=== PATIENT | female | born 1995 | race Caucasian/White ===

== ENCOUNTER 2016-11-01 13:13 | Emergency (ER) | payer OTHER ==
[~2016-11-01] VITALS: Ht 160 cm; Wt 87.7 kg
[~2016-11-01 13:13] MED LIST: AUGMENTIN 500 M1 TAB; CEFDINIR300 MG PO; CELEXA40 MG PO; CLINDAMYCIN300 MG PO; KEFLEX500 M1 PO; KEPPRA750 MG PO; MOTRIN800 MG PO; NAPROSYN375 M1 PO; PRENATAL VITAMI1 TA6 PO; SEROQUEL100 MG PO; TYLENOL XSTR500 MG GT/PO; VICODIN 5/500 M1 TAB; WELLBUTRIN100 MG PO
[2016-11-01 13:31] VITALS: BP 123/68
--- NOTE | 2016-11-01 19:32 | NUR ---
TO ER BED 4
[2016-11-01] MEDS ORDERED: NACL 0.9% 1,000 ML IV ONE (19:46)
[2016-11-01] MEDS ORDERED: DICYCLOMINE HCL LIQUID 20 MG, ALUMINUM HYD/MAG/SIMETHICONE 30 ML, LIDOCAINE VISCOUS 2% ... PO ONE (19:50)
[2016-11-01] MEDS ORDERED: MORPHINE SULFATE 4 MG/ML SYR IVP ONE (19:50)
[2016-11-01] MEDS ORDERED: ONDANSETRON 4 MG/2 ML VIAL IVP ONE (19:50)
--- NOTE | 2016-11-01 20:11 | NUR ---
PATIENT PRESENTS TO ED WITH EPIGASTRIC PAIN X1WEEK . PT STATES SHE HAS A HX OF SEIXURES WITH THE LAST ONE BEING IN 2014 . DENIES N/V/D; SKIN IS PINK/WARM/DRY; AAOX4 WITH EVEN AND STEADY GAIT; LUNGS CLEAR BL; HR EVEN AND REGULAR; PT DENIES ANY FEVER, CP, SOB, OR COUGH AT THIS TIME; PATIENT STATES PAIN OF 10/10 AT THIS TIME; VSS; PATIENT POSITIONED FOR COMFORT; HOB ELEVATED; BEDRAILS UP X2; BED DOWN. ER MD MADE AWARE OF PT STATUS.
--- NOTE | 2016-11-01 21:30 | NUR ---
Patient discharged with v/s stable. Written and verbal after care instructions given and explained. Patient alert, oriented and verbalized understanding of instructions. Ambulatory with steady gait. All questions addressed prior to discharge. ID band removed. Patient advised to follow up with PMD. Rx of MYLANTA AND TYLENOL WITH CODEINE given. Patient educated on indication of medication including possible reaction and side effects. Opportunity to ask questions provided and answered.
[2016-11-01 21:31] VITALS: BP 135/80
== END 2016-11-01 21:30 | disposition home or self-care (01) ==
LOC: MED 13:13
DX: R10.10 Upper abdominal pain, unspecified (principal); R11.0 Nausea; F17.200 Nicotine dependence, unspecified, uncomplicated
CPT/HCPCS: 36415; 76705; 80053; 81025; 83690; 85025; 96361; 96374; 96375; 99285; J2270; J2405; J7030; Q0092

== ENCOUNTER 2018-04-25 19:57 | Inpatient (IN) | payer OTHER ==
[~2018-04-25] VITALS: Ht 160 cm; Wt 96.2 kg
[~2018-04-25 19:57] MED LIST changes: -AUGMENTIN 500 M1 TAB; +BUPR100T3 PO; -CEFDINIR300 MG PO; -CELEXA40 MG PO; +CITA40TA13 PO; -CLINDAMYCIN300 MG PO; +IBUP-974 PO; -KEFLEX500 M1 PO; -KEPPRA750 MG PO; -MOTRIN800 MG PO; -NAPROSYN375 M1 PO; -PRENATAL VITAMI1 TA6 PO; +QUET100T PO; -SEROQUEL100 MG PO; -TYLENOL XSTR500 MG GT/PO; -VICODIN 5/500 M1 TAB; -WELLBUTRIN100 MG PO
[2018-04-25 20:00] VITALS: BP 127/67
--- NOTE | 2018-04-25 20:00 | NUR ---
TO BED # 3 AMBULATORY, REPORT GIVEN TO TAJ PATTERSON
--- NOTE | 2018-04-25 20:08 | NUR ---
22 Y/O F BIB BOYFRIEND W/C/O "MY SITE IS INFECTED." PT HAS 3 YEARS AGO. PT HAS RED ARE TO SITE WITH OPEN AREA 1CM X 1.5CM TO UMBILICAL REGION. PT REPORTS IT APPEARED 3 DAYS AGO. PT DENIES N/V/D; SKIN IS NON-INTACT, PINK/WARM/DRY; AAOX4, PERRL, WITH EVEN AND STEADY GAIT; LUNGS CLEAR BL, BREATHING UNLABORED; HR EVEN AND REGULAR, BL PERIPHERAL PULSES PRESENT; BS ACTIVE X4, NO TENDERNESS TO PALPATION, NO HEPATOSPLENOMEGALLY PALPATED, RESONANT TO PERCUSSION; PT DENIES ANY FEVER, CP, SOB, OR COUGH AT THIS TIME; PT STATES 10/10 PAIN AT THIS TIME; VSS; PATIENT POSITIONED FOR COMFORT; HOB ELEVATED; BEDRAILS UP X2; BED DOWN.
--- NOTE | 2018-04-25 20:32 | NUR ---
Dr. Reaves evaluating patient at bedside.
[2018-04-25] MEDS ORDERED: MORPHINE SULFATE 4 MG/ML SYR IVP ONE (20:35)
[2018-04-25] MEDS ORDERED: cefTRIAXone 1,000 MG in DEXT 5% MINI-BAG PLUS 50 ML IV ONE (20:35)
[2018-04-25] MEDS: NACL 0.9% 1,000 ML IV SCH (20:43)
[2018-04-25] MEDS ORDERED: cefTRIAXone 1,000 MG VIAL ONE (20:46)
--- NOTE | 2018-04-25 21:00 | NUR ---
IV STARTED, LABS DRAWN AND HANDED TO SOLE ROUNDING MACHINE OPERATOR, MEDS GIVEN. EMT AT BEDSIDE TO PERFORM EKG AND PLACE PT ON MONITOR
[2018-04-25] MEDS ORDERED: ACETAMINOPHEN 325 MG TAB PO PRN (21:05)
[2018-04-25] MEDS ORDERED: IBUPROFEN 800 MG TAB PO PRN (21:05)
[2018-04-25] MEDS ORDERED: ONDANSETRON 4 MG/2 ML VIAL IVP PRN (21:05)
--- NOTE | 2018-04-25 21:16 | NUR ---
XR AT BEDSIDE
[2018-04-25] MEDS ORDERED: diphenhydrAMINE 50 MG/ML VIAL IVP ONE (21:20)
--- NOTE | 2018-04-25 21:20 | NUR ---
PT REPORTS SLIGHT PAIN ON SKIN DISTAL TO IV SITE. MILD HIVE WITH SURROUNDING REDNESS NOTED. PT DENIES ITCHINESS, SOB, OR THROAT TIGHTNESS. IV ROCEPHIN PAUSED, ER MD MADE AWARE. IV BENADRYL TO BE GIVEN. ER STATED THAT IT IS OK TO CONTINUE IV ROCEPHIN, WILL ENDORSE TO MS YESENIA.
[2018-04-25 21:29] LABS: BASOPHILS # (AUTO) 0.1 K/uL (0.00-0.22); BASOPHILS % (AUTO) 0.6 % (0.0-2.0); EOSINOPHILS # (AUTO) 0.3 K/uL (0-0.4); EOSINOPHILS % (AUTO) 2.5 % (0.0-4.0); HEMATOCRIT 39.5 % (36-48); HEMOGLOBIN 13.2 g/dL (12.0-16.0); LYMPHOCYTES % (AUTO) 19.2 % (20.5-51.1); MEAN CORPUSCULAR HEMOGLOBIN 29 pg (27-31); MEAN CORPUSCULAR HGB CONC 34 g/dL (33-37); MEAN CORPUSCULAR VOLUME 87.4 fL (80-94); MONOCYTES # (AUTO) 0.8 K/uL (0.8-1.0); MONOCYTES % (AUTO) 7.3 % (1.7-9.3); NEUTROPHILS # (AUTO) 7.4 K/uL (1.8-7.7); NEUTROPHILS % (AUTO) 70.4 % (42.2-75.2); PLATELET COUNT (AUTO) 214 K/uL (140-450); RED BLOOD CELL COUNT(AUTO) 4.52 MIL/uL (4.20-5.40); RED CELL DISTRIBUTION WIDTH 13.4 % (11.6-13.7); WHITE BLOOD COUNT (AUTO) 10.5 K/uL (4.8-10.8)
[2018-04-25] MEDS ORDERED: ESCI20TA PO (21:29)
--- NOTE | 2018-04-25 21:40 | NUR ---
RECEIVED BEDSIDE REPORT FROM PASTORAL MINISTRIES PROFESSOR TAJ. PT AMBULATED TO BED, STEADY GAIT. IV IN LEFT HAND, INFUSING ROCEPHIN, SLIGHT REDNESS AT SITE DUE TO SENSITIVITY TO ROCEPHIN, MD AWARE ACCORDING TO PASTORAL MINISTRIES PROFESSOR. ALLERGY BAND PLACED. ABDOMINAL WOUND NOTED, PICTURE TAKEN IN ER. PT C/O SLIGHT PAIN WHEN MOVING, NO PAIN WHEN SITTING IN BED, PT SHOWS NO ACUTE DISTRESS, WILL MEDICATE ACCORDING TO MD ORDER FOR MILD PAIN. EXPLAINED PLAN OF CARE, UPDATED BORED, WILL CONTINUE TO MONITOR. Addendum: 04/26/18 at 0421 by Eula Cruz RN MRSA SCREEN COMPLETED AND SENT TO LAB.
--- NOTE | 2018-04-25 21:43 | NUR ---
Patient will be admitted to care of DR. ROMAN. Admited to MS. Will go to room 105B. Belongings list completed. Report to YESENIA ROACH AT BEDSIDE.
[2018-04-25 21:44] LABS: ANION GAP 14.3 (8-16); CARBON DIOXIDE 22.8 mmol/L (21-32); CREATININE 0.9 mg/dL (0.6-1.3); POTASSIUM 4.1 mmol/L (3.5-5.1)
[2018-04-25 21:49] LABS: ALBUMIN 3.6 g/dL (3.4-5.0); TOTAL BILIRUBIN 0.2 mg/dL (0.0-1.0)
[2018-04-25 22:15] LABS: APPEARANCE,URINE CLEAR (CLEAR); BILIRUBIN,URINE NEGATIVE (NEGATIVE); BLOOD, URINE NEGATIVE (NEGATIVE); COLOR,URINE YELLOW (YELLOW); LEUKOCYTE ESTERASE ,URINE NEGATIVE (NEGATIVE); NITRITE, URINE NEGATIVE (NEGATIVE); UGLUCOSE NEGATIVE (NEGATIVE)
--- NOTE | 2018-04-25 22:43 | NUR ---
PT C/O PAIN 3/10 IN ABDOMEN WILL MEDICATE ACCORDING TO MD ORDER.
[2018-04-26] VITALS: BP 119/61
--- NOTE | 2018-04-26 02:00 | NUR ---
PT RESTING IN BED NO SIGNS OF ACUTE DISTRESS, WILL CONTINUE TO MONITOR, CALL LIGHT WITHIN REACH.
[2018-04-26] MEDS: HYDROcodone/APAP 5/325 MG 1 TAB TAB PO PRN ×2 (03:24→07:30)
--- NOTE | 2018-04-26 03:24 | NUR ---
PT C/O PAIN 6/10 IN ABDOMEN. WILL MEDICATED ACCORDING TO MD ORDER.
[2018-04-26] MEDS ORDERED: PIPERACILLIN/TAZOBACTAM 3.375 GM VIAL IV ONE (04:54)
[2018-04-26] MEDS ORDERED: PIPERACILLIN/TAZOBACTAM 3.375 GM in DEXTROSE 5% 50 ML IV SCH (05:00)
--- NOTE | 2018-04-26 05:27 | NUR ---
ASSESSED PTS ABDOMINAL WOUND, BLOODY/WHITE DISCHARGE OOZING OUT OF WOUND. PT REPORTS THIS HAS NEVER HAPPENED BEFORE. CEASED WOUND WITH NS, PLACED GAUZE AROUND WOUND. NO FEVER NOTED, WILL CONTINUE TO MONITOR.
[2018-04-26 07:22] LABS: ALBUMIN 3.3 g/dL (3.4-5.0); ANION GAP 11.7 (8-16); CARBON DIOXIDE 21.4 mmol/L (21-32); CREATININE 0.8 mg/dL (0.6-1.3); POTASSIUM 4.1 mmol/L (3.5-5.1); TOTAL BILIRUBIN 0.3 mg/dL (0.0-1.0)
[2018-04-26 07:23] LABS: BASOPHILS # (AUTO) 0.1 K/uL (0.00-0.22); BASOPHILS % (AUTO) 0.6 % (0.0-2.0); EOSINOPHILS # (AUTO) 0.3 K/uL (0-0.4); EOSINOPHILS % (AUTO) 3.2 % (0.0-4.0); HEMATOCRIT 38.9 % (36-48); HEMOGLOBIN 12.9 g/dL (12.0-16.0); LYMPHOCYTES # (AUTO) 2.1 K/uL (2.5-16.5); LYMPHOCYTES % (AUTO) 22.9 % (20.5-51.1); MEAN CORPUSCULAR HEMOGLOBIN 29 pg (27-31); MEAN CORPUSCULAR HGB CONC 33 g/dL (33-37); MEAN CORPUSCULAR VOLUME 87.3 fL (80-94); MONOCYTES # (AUTO) 0.7 K/uL (0.8-1.0); MONOCYTES % (AUTO) 7.8 % (1.7-9.3); NEUTROPHILS # (AUTO) 5.9 K/uL (1.8-7.7); NEUTROPHILS % (AUTO) 65.5 % (42.2-75.2); PLATELET COUNT (AUTO) 211 K/uL (140-450); RED BLOOD CELL COUNT(AUTO) 4.46 MIL/uL (4.20-5.40); RED CELL DISTRIBUTION WIDTH 13.7 % (11.6-13.7)
--- NOTE | 2018-04-26 07:34 | NUR ---
ENDORSED PT TO DAY SHIFT NURSE, PT STABLE.
--- NOTE | 2018-04-26 07:40 | NUR ---
RECEIVED PT FROM CHILDREN LIBRARIAN NURSE, SUMMER, PT IS AWAKE AND LYING ON THE BED WITH SIDE RAILS UP AND PADDED, CALL LIGHT WITHIN REACH. PT HAS AN IV LINE ON THE LEFT HAND G.22 WITH NS AT 5ML/HR, INTACT. PT HAS AND ERYTHEMA AROUND THE CS KURT WITH A SMALL OPEN WOUND AND MINIMAL WHITISH DISCHARGE NOTED, PT VERBALIZED PAIN RATE OF 7/10 ON THE SITE. NO OTHER UNTOWARD SIGN AND SYMPTOM NOTED. WILL CONTINUE TO MONITOR PT.
[2018-04-26 08:00] VITALS: BP 115/65
--- NOTE | 2018-04-26 08:38 | NUR ---
PATIENT HAS BEEN SCREENED AND CATEGORIZED HIGH NUTRITION RISK. PATIENT WILL BE SEEN WITHIN 1-2 DAYS OF ADMISSION. 04/26/18 04/27/[address]
[2018-04-26] MEDS: ENOXAPARIN 40 MG/0.4 ML SYR SUBQ SCH (09:18)
--- NOTE | 2018-04-26 09:29 | NUR ---
CM NOTE ADMISSION CHART REVIEW DONE. INITIAL REVIEW FAXED TO [facility] [phone] KAYLEEN PH# [phone] CRISTELA GARCIA PH# [phone].
--- NOTE | 2018-04-26 09:30 | NUR ---
DR. ROMAN CAME TO THE PT'S ROOM, SPOKE AND ASSESSED THE PT AND THE PT'S WOUND, PT RESPONDING APPROPRIATELY. ABDOMINAL WOUND CULTURE SAMPLE TAKEN AND WAS SENT TO LAB, ORDER PLACED. ABDOMINAL WOUND WAS REINFORCED WITH A GAUZE DRESSING. NO OTHER UNTOWARD SX NOTED. WILL MONITOR PT.
--- NOTE | 2018-04-26 11:22 | NUR ---
WOUND CARE EVALUATION NOTES: REASON FOR EVALUATION: ABDOMINAL WOUND SKIN ASSESSMENT DONE ON THIS 22 Y/O FEMALE PATIENT FROM HOME TO [facility], WITH INITIAL DIAGNOSIS OF ABDOMINAL PAIN. PAST MEDICAL HISTORY INCLUDE HYPERTENSION, SEIZURE, DEPRESSION AND . ALL ABOVE INFORMATION WAS OBTAINED FROM THE ADMISSION H&P. LABS ARE WBC 9.0, H/H 12.9/38.9, GLUCOSE 97 AND ALBUMIN 3.3. PATIENT IS AWAKE, ORIENTED TO PERSON, PLACE, DATE AND TIME. SKIN WARM TO TOUCH WNL, MULTIPLE TATTOOS TO UPPER EXTREMITIES. CONTINENT OF BOWEL AND BLADDER. LEFT FOREARM PERIPHERAL IV PATENT AND INTACT. ON ROOM AIR. PLAN OF CARE AND PRESSURE PREVENTIVE MEASURES DISCUSSED, ABLE TO VERBALIZE UNDERSTANDING. INTEGUMENTARY: -LOWER ABDOMINAL OLD HEALED SCARS -RLQ ABDOMINAL ABSCESS WOUND WITH SMALL PIN POINT OPENING 0.5X0.5X0.1CM, OOZING PURULENT DRAINAGE EACH TIME AREA IS PRESSED. MILD ODOR. GERRI WOUND SKIN INTACT WITH ERYTHEMA, WARM AND TENDERNESS TO TOUCH, PAIN 3/10 RECOMMENDATIONS: -WOUND CULTURE PENDING -US TO RLQ ABDOMINAL AREA AND SURGEON TO CONSULT POSSIBLE I&D -CLEANSE RLQ ABDOMINAL WOUND WITH NS, PAT DRY, APPLY SILVASORB GEL AND COVER WITH DRY NON-ADHERENT DRESSING QD AND PRN WITH SOILING. -ASSESS AND MONITOR SKIN CONDITION DURING POSITION CHANGE, PLEASE PAY PARTICULAR ATTENTION TO SACRALCOCCYX, ELBOWS AND HEELS -OFFLOAD BILATERAL HEELS BY PLACING PILLOWS UNDER CALVES AT ALL TIMES, UNLESS OTHERWISE CONTRAINDICATED -KEEP SKIN CLEAN AND DRY AT ALL TIMES. RECOMMENDATIONS DISCUSSED WITH PRIMARY RN WILL FOLLOW UP PATIENT Q7 DAYS AND PRN. PLEASE CONTACT WOUND CARE NURSE FOR ANY QUESTIONS AND CHANGES IN SKIN CONDITION.
--- NOTE | 2018-04-26 11:45 | NUR ---
WOUND CARE NURSE, HAYDEN, REINFORCED THE WOUND OF THE PT WITH A SILVASORB GEL AND APPLIED A COMPOSITE DRY DRESSING, DATED AND TIME NOTED.
[2018-04-26] MEDS: NACL 0.9% 1,000 ML IV SCH (12:07)
[2018-04-26] MEDS: PIPER/TAZO 3.375GM/D5W PREMIX 50 ML IV SCH ×2 (12:08→20:04)
--- NOTE | 2018-04-26 12:27 | NUR ---
PT IS AWAKE AND ZOSYN WAS GIVEN IVPB, PT IS TOLERATING IT. BED LINENS WERE CHANGED AND PT WAS MADE COMFORTABLE AND ABOUT TO START EATING HER LUNCH. WILL CONTINUE TO MONITOR PT.
[2018-04-26] MEDS: NACL 0.9% IRR 250 ML BOTTLE IR SCH (13:18)
[2018-04-26] MEDS: MORPHINE SULFATE 2 MG/ML SYR IVP PRN ×2 (14:06→19:40)
--- NOTE | 2018-04-26 14:41 | NUR ---
04/26/18 RD INITIAL ASSESSMENT COMPLETED PLEASE REFER TO NUTRITION ASSESSMENT UNDER CARE ACTIVITY FOR ESTIMATED NUTRITIONAL NEEDS. 1. RECOMMEND CARDIAC DIET. 2. RD TO FOLLOW-UP 5-7 DAYS, LOW RISK SOTO LEPE, RD
--- NOTE | 2018-04-26 15:30 | NUR ---
CALLED DR. ROMAN AND INFORMED HIM OF THE RECOMMENDATION OF WOUND CARE NURSE FOR THE PT. WOUND CARE NURSE RECOMMENDED FOR AN US OF THE RLQ ABDOMINAL AREA AND A PHYSICIAN CONSULT FOR A POSSIBLE I&D. DR. ROMAN ACKNOWLEDGED.
--- NOTE | 2018-04-26 15:45 | NUR ---
ASSISTED PT TO AMBULATE IN THE HALLWAY, NO SOB NOTED AN DPT TOLERATED IT. PT DENIES PAIN AT THIS TIME.
[2018-04-26 16:00] VITALS: BP 124/76
--- NOTE | 2018-04-26 16:08 | NUR ---
ULTRASOUND OF THE RLQ ABDOMINAL AREA WAS BEING DONE NOW TO THE PT.
--- NOTE | 2018-04-26 16:25 | NUR ---
ULTRASOUND OF THE RLQ ABDOMINAL AREA WAS FINISHED NOW.
--- NOTE | 2018-04-26 16:30 | NUR ---
PT'S RLQ ABDOMINAL WOUND WAS CLEANED AND SILVASORB GEL WAS APPLIED AND REINFORCED BY A DRY COMPOSITE DRESSING., DATE AND TIME NOTED.
--- NOTE | 2018-04-26 17:12 | NUR ---
PT VERBALIZED A HEADACHE AND ASKED FOR A TYLENOL FOR THE PAIN. WILL MEDICATE WITH TYLENOL.
--- NOTE | 2018-04-26 19:15 | NUR ---
RECEIVED BEDSIDE REPORT FROM DAY SHIFT RN. PT IN BED, FAMILY AT BESIDE STATED "IM IN SEVERE PAIN". WILL MEDICATE ACCORDING TO MD ORDER FOR SEVERE PAIN, NOTED DRESSING ON ABDOMEN, CLEAN AND INTACT. IV IN LEFT HAND 22 G, SL, PATENT, DRESSING IN TACT. EXPLAINED PLAN OF CARE UPDATED BORED. WILL GIVE DUE MEDICATIONS.
--- NOTE | 2018-04-26 19:15 | NUR ---
ENDORSED PT TO PLANS EXAMINER NURSE, SUMMER FOR CONTINUITY OF CARE. PT IS WITH THE MOTHER ON THE BEDSIDE AND IS STABLE AT THIS TIME.
--- NOTE | 2018-04-26 19:40 | NUR ---
V/S WITHIN PTS BASELINE. MEDICATED WITH MORPHINE FOR SEVERE PAIN ACCORDING TO MARINO QUINTANILLA.
[2018-04-26] MEDS: buPROPion 100 MG TAB PO SCH (20:03)
[2018-04-26] MEDS: QUEtiapine FUMARATE 100 MG TAB PO SCH (20:04)
--- NOTE | 2018-04-26 20:36 | NUR ---
DR PINEDO AT BEDSIDE, EXPLAINED PLAN OF SX I&D. WILL HAVE PT SIGN CONSENT AND COMPLETE PRE-OP CHECKLIST, PT TO BE NPO AFTER MIDNIGHT. PT TO HAVE CT SCAN WITHOUT CONTRAST OF ABDOMEN AND PELVIS. PT ON SL, PT LEFT UNIT.
--- NOTE | 2018-04-26 20:50 | NUR ---
PT BACK ON UNIT, SL, CALL LIGHT WITH IN REACH.
[2018-04-26] MEDS ORDERED: CITALOPRAM 20 MG TAB PO SCH (21:00)
--- NOTE | 2018-04-26 22:00 | NUR ---
PT RESTING IN BED, CALL LIGHT WITHIN REACH, WILL CONTINUE TO MONITOR.
[2018-04-26] MEDS ORDERED: INFLUENZA VIRUS VACCINE QUAD 0.5 ML SYR IMVAC PRN (22:20)
--- NOTE | 2018-04-26 23:30 | NUR ---
PT SIGNED CONSENT FOR I&D SX, PLACED IN CHART. EXPLAINED PLAN OF CARE AND PT TO BE ON NPO AFTER MIDNIGHT. OFFERED PT MALISSALLBisi, PT REFUSED. DRESSING ON ABDOMEN CHANGED AND CLEANED ACCORDING TO MD ORDER. UNABLE TO REMOVE NOSE RING FROM PT, WILL ENDORSE TO DAY SHIFT AND EXPLAINED TO PT THAT IT MAY NEED TO BE CUT OFF PRIOR TO SX IF WE CANT GET IT OFF. PT STATED "I GUESS". WILL CONTINUE TO MONITOR.
[2018-04-26 23:38] VITALS: BP 113/57
--- NOTE | 2018-04-27 00:12 | NUR ---
PRE OP CHECKLIST COMPLETED
--- NOTE | 2018-04-27 02:15 | NUR ---
PT RESTING IN BED, NO SIGNS OF DISTRESS, CALL LIGHT WITHIN REACH, WILL CONTINUE TO MONITOR.
[2018-04-27] MEDS: PIPER/TAZO 3.375GM/D5W PREMIX 50 ML IV SCH ×3 (04:38→21:05)
[2018-04-27] MEDS: DEXT 5% / NACL 0.45% 1,000 ML IV SCH ×2 (05:03→18:20)
--- NOTE | 2018-04-27 05:06 | NUR ---
CALLED DR ROMAN ORDER FOR D 5 / NS AT 75 ML/HR.
--- NOTE | 2018-04-27 07:27 | NUR ---
ENDORSED PT DAY SHIFT NURSE. PT STABLE.
--- NOTE | 2018-04-27 07:29 | NUR ---
RECEIVED PT FROM SHANK PAPERER NURSE, DOC, PT IS AWAKE AND UP AND ABOUT TO AMBULATE TO THE BATHROOM. PT DENIES PAIN AT THIS TIME AND VERBALIZED THAT SHE FEELS FINE. PT HAS AN ON GOING IV FLUID OF D5 1/2NS AT THE LEFT HAND G. 22 AND IS INTACT AND ASYMPTOMATIC. PT WAS ASSISTED WITH HER AM CARE AND ASSISTED BACK TO BED, WOUND WAS CHECKED AND DRESSING WAS DRY AND INTACT. PLAN OF CARE WAS DISCUSSED TO THE PT AND VERBALIZED UNDERSTANDING. WILL CONTINUE TO MONITOR PT.
[2018-04-27 08:00] VITALS: BP 116/71
--- NOTE | 2018-04-27 08:00 | NUR ---
PT IS AWAKE AND MOM ON THE BEDSIDE, VITAL SIGNS TAKEN AND PT TOLERATED IT, LOVENOX WAS HOLD OFF PER PARAMETER FOR THE SCHEDULED I&D PROCEDURE. WILL MONITOR PT.
[2018-04-27] MEDS: SULFAMETH/TRIMETH DS 800/160MG 1 TAB PO SCH ×2 (08:32→20:43)
[2018-04-27] MEDS: ENOXAPARIN 40 MG/0.4 ML SYR SUBQ SCH (08:32)
--- NOTE | 2018-04-27 08:50 | NUR ---
DR. ROMAN CAME TO THE PT'S ROOM AND SPOKE TO THE PT REGARDING THE PLAN OF CARE AND PT VERBALIZED UNDERSTANDING. DR. ROMAN MADE A PRESCRIPTIONS FOR THE PT ONCE DISCHARGE. DR. ROMAN ALSO INFORMED THE PT TO HAVE A CONSULTATION WITH A LUNG SPECIALIST AND TOLD THE PT ABOUT THE RESULTS OF THE CT SCAN AND U/S THAT WERE DONE TO HER AND PT VERBALIZED UNDERSTANDING. DR. ROMAN ALSO TOLD THE PT TO HAVE THE KEFLEX AND BACTRIM TO BE CONTINUED TO TAKE. NO FURTHER ORDERS WAS PLACED BY DR. ROMAN. WILL FOLLOW THROUGH ORDERS WITH THE PT.
--- NOTE | 2018-04-27 09:15 | NUR ---
PT WAS OFF THE ROOM FOR AN I&D PROCEDURE WITH DR. PINEDO, PT IS AWAKE AND ALERT AND ORIENTED AND VITAL ARE STABLE. OR NURSES WERE MADE AWARE THAT THE PT HAS SOME CONCERN WITH REGARDS TO ANESTHESIA AND OR NURSES SAID THAT ANESTHESIOLOGIST WILL BE SPEAKING TO THE PT.
[2018-04-27] MEDS ORDERED: PROPOFOL 200 MG/20 ML VIAL IV ONE (09:49)
[2018-04-27] MEDS ORDERED: DEXAMETHASONE 4 MG/ML VIAL ONE (09:49)
[2018-04-27] MEDS ORDERED: fentaNYL 0.05 MG/ML VIAL ONE (10:00)
[2018-04-27] MEDS: BUPIVACAINE-MPF 0.5% 30 ML VIAL INJ ONE ×2 (10:00→12:49)
[2018-04-27] MEDS: MORPHINE SULFATE 2 MG/ML SYR IVP PRN (11:00)
[2018-04-27] MEDS ORDERED: MORPHINE SULFATE 4 MG/ML SYR ONE (11:03)
--- NOTE | 2018-04-27 11:03 | NUR ---
CM NOTE CONCURRENT REVIEW FAXED TO [facility] [phone] KAYLEEN PH# [phone] CRISTELA GARCIA PH# [phone].
--- NOTE | 2018-04-27 11:15 | NUR ---
PT WAS BACK TO THE ROOM FROM THE I&D OF THE LOWER ABDOMINAL ABSCESS. VITAL SIGN WAS TAKEN AND IS STABLE. ASSISTED PT TO THE BATHROOM AND PT PEED, AND ASSISTED BACK TO THE BED AND MADE COMFORTABLE. NO SIGN OF DISTRESS NOTED AND WILL CONTINUE TO MONITOR PT.
[2018-04-27] MEDS ORDERED: ACET-9525 PO (12:06)
[2018-04-27] MEDS: NACL 0.9% IRR 250 ML BOTTLE IR SCH (13:00)
--- NOTE | 2018-04-27 13:07 | NUR ---
NA CL IRRIGATION AND SILVASORB GEL NOT APPLIED, PT'S DRESSING DRY AND INTACT FROM I&D.
[2018-04-27 16:00] VITALS: BP 110/64
--- NOTE | 2018-04-27 16:45 | NUR ---
PT IS AWAKE WITH MOTHER ON THE BEDSIDE, VITAL SIGN TAKEN AND IS STABLE. WILL MONITOR PT.
--- NOTE | 2018-04-27 17:00 | NUR ---
ABDOMINAL DRESSING WAS APPLIED TO REINFORCED THE DRESSING OF THE I&D SITE FOR THE MINIMAL AMOUNT OF BLOOD STAINED IN THE DRESSING.
--- NOTE | 2018-04-27 19:45 | NUR ---
ENDORSED PT TO WOOD AND WOOD [employer]ODUCTS LABOURER NURSEBRITTA FOR CONTINUITY OF CARE. PT IS STABLE AT THIS TIME.
--- NOTE | 2018-04-27 19:46 | NUR ---
RECD. RESTING IN BED, AWAKE, A/OX4. RESPIRATION EVEN AND UNLABORED. IV OF D5 1/2 NS AT 75 ML/HR INFUSING, LEFT HAND G22. INCISION IN THE LOWER ABDOMEN, COVERED WITH DRESSING, DRY AND INTACT. TOLERATING REGULAR DIET, VOIDING WELL AND HAD ALREADY A BM. PLAN OF CARE FOR THE SHIFT DISCUSSED. VERBALIZED UNDERSTANDING. PAIN IN THE ABDOMEN 08/03, STATED TOLERABLE. ON IV ANTIBIOTICS. NO FEVER NOTED.
--- NOTE | 2018-04-27 20:00 | NUR ---
Patient's Plan of Care was discussed and reviewed with DITCH REPAIRER: BRITTA ZEPEDA
[2018-04-27] MEDS: HYDROcodone/APAP 5/325 MG 1 TAB TAB PO PRN (20:43)
[2018-04-27] MEDS: buPROPion 100 MG TAB PO SCH (20:44)
--- NOTE | 2018-04-27 20:44 | NUR ---
DUE PO MEDICATIONS GIVEN.
[2018-04-27] MEDS ORDERED: ESCITALOPRAM 20 MG TAB PO SCH (21:00)
[2018-04-27] MEDS: QUEtiapine FUMARATE 100 MG TAB PO SCH (21:54)
[2018-04-28] VITALS: BP 104/60
--- NOTE | 2018-04-28 | NUR ---
SLEEPING COMFORTABLY IN BED.
[2018-04-28] MEDS: DEXT 5% / NACL 0.45% 1,000 ML IV SCH ×2 (02:08→08:29)
[2018-04-28] MEDS: PIPER/TAZO 3.375GM/D5W PREMIX 50 ML IV SCH (06:13)
--- NOTE | 2018-04-28 06:50 | NUR ---
ABLE TO SLEEP WELL. WHEN ASKED IF SHE NEEDS PAIN MEDICATION STATED "I'M OK". CONDITION REMAIN STABLE. WILL ENDORSE TO AM NURSE FOR CONTINUITY OF CARE.
--- NOTE | 2018-04-28 07:15 | NUR ---
ENDORSED TO YESENIA STONE FOR CONTINUITY OF CARE.
--- NOTE | 2018-04-28 07:30 | NUR ---
PATIENT AWAKE, ALERT. RESPIRATION EVEN, UNLABOR ON ROOM AIR. SKIN DRY AND WARM. IV PATENT AND INTACT. WOUND DRESSING CLEAN AND INTACT WITH MINIMAL BLEEDING. DENIED PAIN, N/V AT THIS TIME. PLAN OF CARE WAS DISCUSSED WITH PATIENT. BED AT LOW POSITION, SIDE RAILS UP. CALL LIGHT WITHIN REACH
[2018-04-28 08:00] VITALS: BP 101/50
[2018-04-28] MEDS: SULFAMETH/TRIMETH DS 800/160MG 1 TAB PO SCH (08:21)
[2018-04-28] MEDS: ENOXAPARIN 40 MG/0.4 ML SYR SUBQ SCH (08:29)
--- NOTE | 2018-04-28 10:15 | NUR ---
WOUND CARE RE-EVALUATION NOTE: REASON FOR EVALUATION: S/ P I&D LOWER ABDOMEN ABSCESS WOUND ASSESSMENT AND WOUND CARE INSTRUCTIONS GIVEN WITH PRIMARY RN TO PT. AND MOTHER AT BED SIDE, ALL QUESTION ANSWERED. PT. VERBALIZES UNDERSTANDING. SURGICAL WOUND INCISION TO RLQ ABDOMEN, 2X1X2 CM, WOUND BED IS RED AND CLEAN, SMALL AMOUNT OF SANGUINOUS DRAINAGE, NO ODOR, GERRI-WOUND SKIN INTACT. RECOMMENDATIONS: -CLEANSE SURGICAL WOUND WITH NS, PAT DRY, PACK WOUND WITH HYDROGEL WITH ADAPTIC DRESSING, COVER WITH DRY DRESSING AND ABD PAD, SECURE WITH TAPE. CHANGE DRESSING QD AND PRN IF SOILING. -PLEASE KEEP AREA DRY AND CLEAN AT ALL TIMES -PLEASE FOLLOW UP WITH SURGEON 7 DAYS AFTER DISCHARGE. -PLEASE PROVIDE 7 -10 DAYS WOUND DRESSING SUPPLY TO PT. UPON DISCHARGED.
--- NOTE | 2018-04-28 10:45 | NUR ---
WOUND CARE WAS GIVEN. DRESSING WAS CHANGED. WOUND PICTURE WAS TAKEN. PATIENT TOLERATED WELL
--- NOTE | 2018-04-28 11:30 | NUR ---
DISCHARGE INSTRUCTION AND PRESCRIPTION WERE GIVEN AND EXPLAINED TO THE PATIENT. PATIENT VERBALIZED UNDERSTANDING. IV WAS REMOVED, CATHETER INTACT, NO ACTIVE BLEEDING SEEN. PATIENT REFUSED FLU SHOT. WOUND CARE INSTRUCTION AND SUPPLY WERE GIVEN. ALL BELONGINGS WERE TAKEN WITH THE PATIENT. PATIENT WAS ESCORTED OUT BY STAFF. PATIENT IS STABLE AT THIS TIME
--- NOTE | 2018-04-28 12:48 | NUR ---
CM NOTE CONCURRENT REVIEW FAXED TO [facility] [phone] KAYLEEN PH# [phone] CRISTELA GARCIA PH# [phone].
[2018-04-28] MEDS ORDERED: SKINTEGRITY HYDROGEL TP SCH (13:00)
[2018-04-29] MEDS ORDERED: SKINTEGRITY HYDROGEL TP SCH (09:00)
== END 2018-04-28 11:30 | disposition home or self-care (01) | DRG 364 ==
LOC: MED 19:57 → MTU 21:03
PROVIDERS: ADMIT Hospitalist; ATTEND Hospitalist
PROC: 0JB80ZZ Excision of Abdomen Subcutaneous Tissue and Fascia, Open Approach (ICD-10-PCS; 2018-04-27)
PROC: 0J9C0ZZ Drainage of Pelvic Region Subcutaneous Tissue and Fascia, Open Approach (ICD-10-PCS; principal; 2018-04-27 09:40)
DX: L03.311 Cellulitis of abdominal wall (principal); E66.01 Morbid (severe) obesity due to excess calories; F32.9 Major depressive disorder, single episode, unspecified; G47.00 Insomnia, unspecified; G40.909 Epilepsy, unspecified, not intractable, without status epilepticus; F41.9 Anxiety disorder, unspecified; L02.211 Cutaneous abscess of abdominal wall; I10 Essential (primary) hypertension; Z90.49 Acquired absence of other specified parts of digestive tract; Z88.1 Allergy status to other antibiotic agents; Z91.040 Latex allergy status; Z79.899 Other long term (current) drug therapy; Z68.37 Body mass index [BMI] 37.0-37.9, adult
CPT/HCPCS: 36415; 71045; 76705; 80053; 81003; 83605; 85025; 87040; 87070; 87081; 87086; 93005; 96365; 96375; 99285; A6248; J0696; J1100; J1200; J1650; J2270; J2543; J2704; J3010; J3490; J7030; J7060; Q0092